=== PATIENT | male | born 1975 | race Caucasian/White ===

== ENCOUNTER 2018-01-29 09:02 | Outpatient (CLI) | payer BC ==
--- NOTE | 2018-01-29 10:10 | CT ---
CT HEAD NONCONTRAST: Date: 01/29/18 HISTORY: Pressure headaches. FINDINGS: There is no evidence of acute intracranial hemorrhage or infarct. A subtle, ill-defined area of decre ased density is noted within the posterior aspect of the left temporal lobe. Adjacent to this, some a symmetry of the upper cerebellar margins is apparent with slight effacement of the left basilar ciste rns. Possible slight effacement of the posterior aspect of the body of the left lateral ventricle. Se ptum pellucidum remains midline. No other areas of mass effect. Visualized paranasal sinuses remain w ell aerated. IMPRESSION: Subtle asymmetry of the left cerebellum and temporal lobe as detailed above. This may represent sligh t angling within the gantry resulting in the asymmetry, but further evaluation is warranted. Please consider MRI brain, with and without Gadolinium contrast, for better visualization. CODE T. POS: [facility]
== END 2018-01-29 09:03 | disposition home or self-care (01) ==
LOC: CT 09:02
PROVIDERS: ATTEND Family Medicine
DX: R51 Headache (principal); Q04.8 Other specified congenital malformations of brain
CPT/HCPCS: 70450

== ENCOUNTER 2018-02-08 09:18 | Outpatient (CLI) | payer BC ==
--- NOTE | 2018-02-08 12:00 | MRI ---
MRI BRAIN WITHOUT CONTRAST: HISTORY: Brain mass. Pressure in the posterior fossa. Eye pressure. COMPARISON: None. CORRELATION: Noncontrast head CT 01/29/2018. FINDINGS: No hemorrhage on the axial gradient echo sequence. Appropriate T1 marrow signal intensity of the calvarium. Midline brain parenchymal structures are un remarkable. Appropriate white matter signal intensity on the sagittal and coronal FLAIR sequences. No evidence of hydrocephalus. Central arterial flow voids are maintained. Absent restricted diffusion. No parenchymal mass, mass effect, or midline shift. Estuardo volume is age appropriate. Cortical ott- white matter differentiation is preserved. Mild mucosal thickening involving the paranasal sinuses. Adequate mastoid air cell aeration. IMPRESSION: 1. Absent restricted diffusion. No acute infarct. 2. No evidence of a left cerebrum mass. No evidence of abnormal mass in the posterior fossa. POS: [facility]
== END 2018-02-08 09:19 | disposition home or self-care (01) ==
LOC: BICMRI 09:18
PROVIDERS: ATTEND Family Medicine
DX: G93.9 Disorder of brain, unspecified (principal)
CPT/HCPCS: 70551

== ENCOUNTER 2018-11-03 10:10 | Outpatient (CLI) | payer BC ==
--- NOTE | 2018-11-03 12:14 | RAD ---
RIGHT HAND 3 VIEWS: Date: 11/03/18 HISTORY: Hand pain. FINDINGS: Metacarpals and phalanges appear unremarkable. MCP and IP joints unremarkable. No osseous abnormality identified. IMPRESSION: No acute findings. POS: [facility]
== END 2018-11-03 10:11 | disposition home or self-care (01) ==
LOC: BICRAD 10:10
PROVIDERS: ATTEND Family Medicine
DX: M25.541 Pain in joints of right hand (principal)

== ENCOUNTER 2022-12-22 12:22 | Outpatient (CLI) | payer BC | END 2022-12-22 12:23 | disposition home or self-care (01) | LOC: ULT 12:22 | PROVIDERS: ATTEND Family Medicine | DX: R10.11 Right upper quadrant pain (principal); R16.0 Hepatomegaly, not elsewhere classified | CPT/HCPCS: 76705 ==

== ENCOUNTER 2023-06-01 08:10 | Outpatient (CLI) | payer BC | END 2023-06-01 08:11 | disposition home or self-care (01) | LOC: BICULT 08:10 | PROVIDERS: ATTEND Family Medicine | DX: D18.03 Hemangioma of intra-abdominal structures (principal); K76.89 Other specified diseases of liver; N28.1 Cyst of kidney, acquired; R93.2 Abnormal findings on diagnostic imaging of liver and biliary tract | CPT/HCPCS: 76705 ==

== ENCOUNTER 2024-03-01 14:02 | Outpatient (CLI) | payer BC | END 2024-03-01 14:03 | disposition home or self-care (01) | LOC: EEG 14:02 | PROVIDERS: ATTEND Psychiatry & Neurology Neurology | DX: R56.9 Unspecified convulsions (principal) | CPT/HCPCS: 95816 ==

== ENCOUNTER 2024-03-10 09:35 | Outpatient (CLI) | payer BC | END 2024-03-10 09:36 | disposition home or self-care (01) | LOC: MRI 09:35 | PROVIDERS: ATTEND Psychiatry & Neurology Neurology | DX: R56.9 Unspecified convulsions (principal); G93.9 Disorder of brain, unspecified | CPT/HCPCS: 70553; 76376 ==